=== PATIENT | male | born 1955 | race Caucasian/White ===

== ENCOUNTER 2020-11-12 08:10 | Inpatient (IN) | payer BC, OTHER ==
[~2020-11-12] VITALS: Ht 193 cm; Wt 93.4 kg
[2020-11-12 08:22] VITALS: Ht 193 cm; Wt 93.4 kg
[2020-11-12 09:33] LABS: microscopic required? NO
[2020-11-12 09:45] LABS: BASOPHIL % 0.4 % (0.2-1.5); PLATELET COUNT 284 x10^3mcL (152-348); RED CELL DISTRIBUTION WIDTH 13.9 % (12.1-16.2)
[2020-11-12 09:48] LABS: UA SPECIFIC GRAVITY <=1.005 (1.005-1.035); urine erythrocyte NEGATIVE (NEGATIVE)
[2020-11-12 10:00] LABS: CALCIUM 8.8 mg/dL (8.5-10.1); CARBON DIOXIDE 25.9 mmol/L (21-32); CREATININE SERUM 1.4 mg/dL (0.7-1.3); POTASSIUM SERUM 3.8 mmol/L (3.5-5.1)
[2020-11-12 10:05] LABS: BILIRUBIN TOTAL 0.38 mg/dL (0.20-1.00); TOTAL PROTEIN, SERUM 7.5 g/dL (6.4-8.2)
[2020-11-12 10:08] LABS: ALBUMIN 3.2 g/dL (3.4-5.0)
[2020-11-12] MEDS ORDERED: LASIX40 MG PO (12:36)
[2020-11-12] MEDS ORDERED: LEVO-T50 MCG PO (12:36)
[2020-11-12] MEDS ORDERED: BYSTOLIC5 M1 PO (12:36)
[2020-11-12] MEDS ORDERED: XARELTO20 M1 PO (12:36)
[2020-11-12] MEDS ORDERED: DILTIAZEM HCL180 M1 PO (12:37)
[2020-11-12] MEDS ORDERED: PRAVACHOL40 M1 (12:37)
[2020-11-12] MEDS ORDERED: FLOMAX0.4 MG PO (12:39)
[2020-11-12 16:14] VITALS: BP 136/73
[2020-11-12 21:06] VITALS: BP 107/65
[2020-11-13 05:11] VITALS: BP 116/71
[2020-11-13 06:49] LABS: CARBON DIOXIDE 24.3 mmol/L (21-32); CHLORIDE SERUM 102 mmol/L (98-107); CREATININE SERUM 1.2 mg/dL (0.7-1.3); GFR1 > 60 mL/min; GLUCOSE SERUM 99 mg/dL (74-106); SODIUM SERUM 137 mmol/L (136-145)
[2020-11-13 06:50] LABS: BASOPHIL % 0.3 % (0.2-1.5); PLATELET COUNT 286 x10^3mcL (152-348); RED CELL DISTRIBUTION WIDTH 13.8 % (12.1-16.2)
[2020-11-13 12:20] VITALS: BP 101/68
[2020-11-13 17:26] VITALS: BP 121/65
[2020-11-13 20:49] VITALS: BP 105/65
[2020-11-14 06:38] VITALS: BP 117/75
[2020-11-14 06:48] LABS: CALCIUM 8.9 mg/dL (8.5-10.1); CARBON DIOXIDE 23.2 mmol/L (21-32); CHLORIDE SERUM 104 mmol/L (98-107); CREATININE SERUM 1.1 mg/dL (0.7-1.3); GFR1 > 60 mL/min; GLUCOSE SERUM 108 mg/dL (74-106); POTASSIUM SERUM 3.8 mmol/L (3.5-5.1); SODIUM SERUM 138 mmol/L (136-145)
[2020-11-14 07:07] LABS: BASOPHIL % 0.7 % (0.2-1.5); PLATELET COUNT 287 x10^3mcL (152-348); RED CELL DISTRIBUTION WIDTH 14.1 % (12.1-16.2)
[2020-11-14 07:15] VITALS: BP 126/86
[2020-11-14 11:25] VITALS: BP 125/96
[2020-11-14 12:47] VITALS: BP 125/89
[2020-11-14] MEDS ORDERED: LEV500 PO (16:49)
[2020-11-14] MEDS ORDERED: FLA500 PO (16:49)
[2020-11-14] MEDS ORDERED: COLACE100 MG PO (16:52)
[2020-11-14] MEDS ORDERED: ACETAMINOPHEN-H1 TA1 PO (16:52)
[2020-11-14 16:56] VITALS: BP 125/84
[2020-11-14 17:07] VITALS: BP 125/84
== END 2020-11-14 18:04 | disposition home or self-care (01) | DRG 348 ==
LOC: ED 08:10 → MU 11:37 → DU 11:37 → MU 15:21 → DU 11-13 09:56
PROVIDERS: Emergency Medicine; Surgery; ADMIT Internal Medicine; ATTEND Internal Medicine
PROC: 0D9Q0ZZ Drainage of Anus, Open Approach (ICD-10-PCS; principal; 2020-11-13 07:30)
DX: K61.0 Anal abscess (principal); L02.31 Cutaneous abscess of buttock; L03.317 Cellulitis of buttock; E44.0 Moderate protein-calorie malnutrition; Z20.822 Contact with and (suspected) exposure to COVID-19; E03.9 Hypothyroidism, unspecified; N40.0 Benign prostatic hyperplasia without lower urinary tract symptoms; E78.00 Pure hypercholesterolemia, unspecified; I48.91 Unspecified atrial fibrillation; Z95.0 Presence of cardiac pacemaker; Z68.25 Body mass index [BMI] 25.0-25.9, adult; Z79.899 Other long term (current) drug therapy
CPT/HCPCS: 90715; C9113; G0378; J0295; J0690; J2001; J2270; J2405; J2543; J3010; J3370; J3490; J7030; J7042; J7050; Q9967